=== PATIENT | male | born 1955 | race Caucasian/White ===

== ENCOUNTER 2016-04-24 08:48 | Emergency (ER) | payer OTHER ==
--- NOTE | 2016-04-24 09:19 | UCPHY ---
H & P Time Seen by Provider: 04/24/16 09:14 Patient Type: Established HPI/ROS: CHIEF COMPLAINT: Sore throat. HISTORY OF PRESENT ILLNESS: The patient is a 60-year-old male who presents with 3 weeks of sore throat. His describes an area pain in the posterior pharynx just superior to the level of the uvula. He initially had cold symptoms including rhinorrhea and congestion with the sore throat. These resolved but the sore throat persisted. He has been unable to identify lesions or other obvious causes. He has minor intermittent cough and tender lymph nodes with the sore throat. He denies fever, chills, chest pain, shortness of breath, palpitations, vomiting, diarrhea, urinary complaints, headache, lightheadedness. REVIEW OF SYSTEMS: Aside from elements discussed in the HPI, a comprehensive 10-point review of systems was reviewed and is negative. PAST MEDICAL HISTORY: Denies. 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 VITAL SIGNS: see nurse's notes. GENERAL: Well-developed, well-nourished, in no acute distress. HEENT: Atraumatic Eyes: PERRL, EOMI, no conjunctival injection. Ears: TM clear bilaterally. Nose: No discharge. Mouth: moist mucous membranes. Pharynx: no erythema, no exudates, no swelling, no abscess. Uvula is midline and mildly erythematous. NECK: Supple, no adenopathy, no meningismus, no tenderness. Negative Kernig's and Brudzinski's. LUNGS: Clear to auscultation bilaterally, no wheezes, rhonchi or rales. CARDIAC: Regular rate and rhythm, no rubs, murmurs or gallops. ABDOMEN: Soft, nontender, bowel sounds normal. BACK: No CVA tenderness. EXTREMITIES: Normal, no edema, FROM. NEURO: Alert and oriented, grossly nonfocal. SKIN: Warm and dry, no rash. PSYCHIATRIC: Normal mentation, no agitation. Constitutional: Initial Vital Signs Temperature (C) 36.9 C 04/24/16 09:05 Heart Rate 93 04/24/16 09:05 Respiratory Rate 18 04/24/16 09:05 Blood Pressure 144/76 H 04/24/16 09:05 O2 Sat (%) 97 04/24/16 09:05 O2 Delivery Mode Room Air Allergies/Adverse Reactions: gluten Allergy (Verified 04/24/16 09:11) GI Home Medications: Medication Instructions Recorded Ibuprofen 05/21/09 Robaxin 05/21/09 Amoxicillin/Clavulanate Pot 875 mg PO BID #14 tab 04/24/16 [Augmentin 875 MG TAB (*)] Medical Decision Making ED Course/Re-evaluation: Strep swab sent and returned negative. Patient was discharged with instructions regarding regular uses of ibuprofen or other nonsteroidals, a prescription for Augmentin to use as needed if the strep DNA is positive. Patient was also asked to follow up with [facility]. He does not have any tobacco use history and does not chew tobacco, but persistent pharyngeal discomfort without clear cause is of some concern the patient understands that he needs to follow up if his symptoms are not clearing rapidly. Differential Diagnosis: Differential diagnosis for the patient's sore throat was considered including but not limited to viral pharyngitis, bacterial pharyngitis, tonsillitis, tonsillar abscess, peritonsillar abscess, foreign body, epiglottitis, bacterial tracheitis. - Data Points Laboratory Results: 04/24/16 04/24/16 Unknown 09:05 Group A Strep Screen NEGATIVE (NEGATIVE) Group A Strep DNA Pending Departure - Departure Disposition: Home, Routine, Self-Care Clinical Impression: Sore throat, Pharyngitis Condition: Good Instructions: Pharyngitis (ED) Additional Instructions: I recommend Ibuprofen (Motrin,Advil) or Naproxen Sodium (Aleve) for pain and anti-inflammatory effects. You may take either one, but do not take both. Your dose is: Ibuprofen 600mg every 6-8 hours with food. OR Naproxen Sodium (Aleve) 220mg every 12 hours. Continue your [id number] sore throat treatments. Your rapid strep test was negative in the Urgent Care today. You will be contacted if your strep DNA test returns positive. If it does, or if your symptoms worsen, you should take the Augmentin as prescribed. If symptoms are not improving in the next 2-3 days you can call Dr. Walton, ENT , to set up a follow up appointment. Return to Urgent Care or visit the ER if you experience any serious worsening of condition. Referrals: SCOTT BURRIS [Primary Care Provider] - As per Instructions Marina Walton MD [Medical Doctor] - As per Instructions Prescriptions: Amoxicillin/Clavulanate Pot [Augmentin 875 MG TAB (*)] 875 mg PO BID #14 tab - PQRS PQRS Measurement: Not applicable Report Scribed for: Navya Armas Report Scribed by: Errol Bustamante Date of Report: 04/24/16 Time of Report: 09:19 Physician Review and Approval Statement: 04/24/16 13:42 Portions of this note were transcribed by a medical doctor nuclear medicine. I, Dr Navya Armas , personally performed a history, physical exam, medical decision making, and confirmed the accuracy of the information in the transcribed note.
[2016-04-24 09:54] VITALS: BP 144/76; PULSE 93; RESP 18; TEMP 98.4; O2SAT 97
== END 2016-04-24 09:47 | disposition home or self-care (01) ==
LOC: CED 08:48
DX: J02.9 Acute pharyngitis, unspecified (principal)
CPT/HCPCS: 87880-PO; 99214-PO; G0463-PO

== ENCOUNTER 2016-08-25 19:37 | Emergency (ER) | payer MEDICAID ==
[2016-08-25 19:50] VITALS: BP 139/97; PULSE 96; RESP 16; TEMP 98.4; O2SAT 96
[2016-08-25] MEDS ORDERED: OXYCODONE/APAP 5/325MG PREPACK#4 BTL TAKEHOME ONE (20:03)
[2016-08-25] MEDS ORDERED: OXYCODONE/APAP 5/325 TAB PO ONE (20:03)
--- NOTE | 2016-08-25 20:07 | EDPHY ---
H & P Stated Complaint: LLE pain HPI/ROS: CHIEF COMPLAINT: Right calf pain, injury HISTORY OF PRESENT ILLNESS: Right calf pain that started yesterday while running up hill. Sudden onset of pain on the right calf, more lateral than medial. Moderate to severe pain with palpation and movement. Improved at rest. No radiating pain. No numbness, tingling or weakness. No ecchymosis. Able to dorsiflex and plantar flex the foot. He tells me that he thinks he has "a grade II sprain of my gastroc." No redness or edema to the leg. No history of venous thrombolic event. No other associated complaints or modifying factors. PRIOR ORTHO INJURIES: Multiple ESTABLISHED ORTHOPEDIST: Dr. Mj Kwok REVIEW OF SYSTEMS: Ten systems reviewed and are negative unless otherwise noted in the HPI EXAMINATION General Appearance: Alert, no distress Cardiovascular: Pulses normal throughout. DP pulses 2+. Brisk cap refill Neurological: A&O, sensory symmetric, strength symmetric. Normal proprioception of the great toe. Skin: Warm and dry, no rash. No erythema. No ecchymosis. No lacerations or abrasions. Extremities: Tenderness to palpation over the right calf, lateral and into the proximal Achilles tendon. There is no tenderness at the Achilles insertion. There is no erythema. Range of motion is fully intact including plantar flexion dorsiflexion. There is a negative Nieves test. No palpable cord. Range of motion of the ipsilateral hip and knee are fully intact. Neurovascular intact distal to the pain Psychiatric: Mood and affect normal DIFFERENTIAL DIAGNOSES: Including but not limited to acute calf strain, Achilles tendon injury, Achilles enthesopathy, muscular strain, musculoskeletal pain MDM: 8:04 p.m. Right calf pain after injury while running yesterday. He is concerned about injury to the calf and Achilles tendon. He is requesting ultrasound. He is intact without evidence of Achilles tendon rupture as he has dorsiflexion and plantar flexion of the ankle. Pain is moderate to severe. I have ordered Percocet for pain control as well as ultrasound at his request. 8:20 p.m. dental lab technician Yanni informed me that she is unable to perform anything other than DVT study on the patient. I spoke with the patient informed to this , informing her that there is no indication or ability to diagnosis is scenario with ultrasound. He is requesting MRI but I have informed him that we are not able to do so as this is not an emergent scenario. I will treat him with a [place] boot for the calf strain and possible Achilles tendon injury. He is neurovascular intact without any evidence of Achilles tendon rupture. He is weight-bearing as tolerated with pain medication. Follow up with established orthopedist or our on-call orthopedist He is comfortable with this plan and discharged home stable condition. ED Precautions: Worsening pain. Erythema, edema, cyanosis, pallor, paresthesia or anesthesia. SUPERVISION: This patient was independently evaluated without direct examination by the attending physician. Case was discussed with attending physician. Source: Patient Exam Limitations: No limitations - Personal History Current Tetanus/Diphtheria Vaccine: Yes Current Tetanus Diphtheria and Acellular Pertussis (TDAP): Yes - Medical/Surgical History Hx Asthma: No Hx Chronic Respiratory Disease: No Hx Diabetes: No Hx Cardiac Disease: No Hx Renal Disease: No Hx Cirrhosis: No Hx Alcoholism: No Hx HIV/AIDS: No Hx Splenectomy or Spleen Trauma: No Other PMH: ORTHO SURG (2 L shoulder, R shoulder, R ankle) - Social History Smoking Status: Never smoked Constitutional: Initial Vital Signs Temperature (C) 98.4 F 08/25/16 19:47 Heart Rate 96 08/25/16 19:47 Respiratory Rate 16 08/25/16 19:47 Blood Pressure 139/97 H 08/25/16 19:47 O2 Sat (%) 96 08/25/16 19:47 O2 Delivery Mode Room Air Allergies/Adverse Reactions: gluten Allergy (Verified 04/24/16 09:11) GI Home Medications: Medication Instructions Recorded Ibuprofen 05/21/09 Robaxin 05/21/09 Amoxicillin/Clavulanate Pot 875 mg PO BID #14 tab 04/24/16 [Augmentin 875 MG TAB (*)] oxyCODONE HCL/ACETAMINOPHEN 1 each PO Q4-6PRN PRN #14 tablet 08/25/16 [Percocet 5-325 mg Tablet] Medical Decision Making - Data Points Medications Given: Discontinued Medications Oxycodone/Acetaminophen (Percocet 5/325) 1 tab PO EDNOW ONE Stop: 08/25/16 20:04 Last Admin: 08/25/16 20:12 Dose: 1 tab Departure - Departure Disposition: Home, Routine, Self-Care Clinical Impression: Strain of calf muscle Qualifiers: Encounter type: initial encounter Laterality: right Qualified Code(s): S86.811A - Strain of other muscle(s) and tendon(s) at lower leg level, right leg , initial encounter Condition: Good Instructions: Oxycodone/Acetaminophen (By mouth), Muscle Strain (ED), Achilles Tendinitis (ED) Additional Instructions: Weightbearing as tolerated. Brett boot as discussed. Crutches if needed. Follow up with Orthopedics for definitive care. Return to emergency department for worsening pain, inability to dorsiflex the foot, increasing swelling, redness, numbness or tingling Referrals: SCOTT BURRIS [Primary Care Provider] - As per Instructions Pb Barker MD [Medical Doctor] - As per Instructions Natanael Ribera MD [Medical Doctor] - As per Instructions Prescriptions: oxyCODONE HCL/ACETAMINOPHEN [Percocet 5-325 mg Tablet] 1 each PO Q4-6PRN PRN # 14 tablet PRN Reason: Pain, Breakthrough
== END 2016-08-25 20:35 | disposition home or self-care (01) ==
DX: S86.811A Strain of other muscle(s) and tendon(s) at lower leg level, right leg, initial encounter (principal); X58.XXXA Exposure to other specified factors, initial encounter; Y99.8 Other external cause status; Y93.02 Activity, running
CPT/HCPCS: L4386

== ENCOUNTER → 2018-02-26 | Outpatient (CLI) | payer OTHER | LOC: CIMAGING 13:15 | PROVIDERS: ATTEND Family Medicine | DX: S06.9X9A Unspecified intracranial injury with loss of consciousness of unspecified duration, initial encounter (principal) | CPT/HCPCS: 70450-PO ==

== ENCOUNTER → 2018-04-13 | Outpatient (CLI) | payer OTHER | LOC: FIMAGING 06:39 | PROVIDERS: ATTEND Family Medicine | DX: M50.30 Other cervical disc degeneration, unspecified cervical region (principal); M89.38 Hypertrophy of bone, other site; M99.73 Connective tissue and disc stenosis of intervertebral foramina of lumbar region; M12.88 Other specific arthropathies, not elsewhere classified, other specified site ==

== ENCOUNTER → 2018-05-14 | Outpatient (CLI) | payer OTHER | LOC: BMCIMAGING 13:48 | PROVIDERS: ATTEND Neurological Surgery | DX: M50.321 Other cervical disc degeneration at C4-C5 level (principal); M50.322 Other cervical disc degeneration at C5-C6 level; M50.323 Other cervical disc degeneration at C6-C7 level ==